=== PATIENT | male | born 1945 | race Caucasian/White ===

== ENCOUNTER → 2021-09-04 | Outpatient (CLI) | payer MEDICARE, BC | LOC: M WUC 10:39 | PROVIDERS: ATTEND Internal Medicine | DX: R05.3 Chronic cough (principal) ==

== ENCOUNTER → 2021-12-10 | Outpatient (CLI) | payer MEDICARE | LOC: M WUC 13:29 | PROVIDERS: ATTEND Urology | DX: Z85.46 Personal history of malignant neoplasm of prostate (principal) ==

== ENCOUNTER 2022-06-11 07:58 | Emergency (ER) | payer OTHER, MEDICARE ==
[~2022-06-11] VITALS: Ht 172.7 cm; Wt 90.5 kg
[2022-06-11 08:00] VITALS: BP 166/79
[2022-06-11] MEDS ORDERED: TAMS1CAP17 (08:10)
[2022-06-11] MEDS ORDERED: ATOR1TAB21 (08:10)
[2022-06-11] MEDS ORDERED: OMEP-173 (08:10)
[2022-06-11] MEDS ORDERED: PROP10TA56 (08:10)
[2022-06-11] MEDS ORDERED: PRED20TA PO (08:10)
== END 2022-06-11 11:18 | disposition home or self-care (01) ==
LOC: M ED 10:46
DX: M50.322 Other cervical disc degeneration at C5-C6 level (principal); M50.323 Other cervical disc degeneration at C6-C7 level; V48.5XXA Car driver injured in noncollision transport accident in traffic accident, initial encounter; X50.0XXA Overexertion from strenuous movement or load, initial encounter; E78.5 Hyperlipidemia, unspecified; C61 Malignant neoplasm of prostate; Z87.891 Personal history of nicotine dependence

== ENCOUNTER → 2024-06-29 | Outpatient (CLI) | payer MEDICARE ==
[~2024-06-29] MED LIST: ATOR1TAB21; E-Z-GAS II EFFERVESCENT PACKET (SODIUM BICARB./CITRIC ACID/SIMETHICONE) As Ordered ONE; E-Z-HD 98% w/w 340GM SUSP BTL As Ordered ONE; E-Z-PAQUE 96% w/w SUSP 176GM BTL As Ordered ONE; OMEP-173; PRED20TA PO; PROP10TA56; TAMS1CAP17
== END ==
LOC: M RAD 09:42
PROVIDERS: ATTEND Physician Assistant Surgical
DX: R13.10 Dysphagia, unspecified (principal); K21.9 Gastro-esophageal reflux disease without esophagitis

== ENCOUNTER → 2025-07-10 | Outpatient (REF) | payer MEDICARE ==
[~2025-07-10] MED LIST changes: -E-Z-GAS II EFFERVESCENT PACKET (SODIUM BICARB./CITRIC ACID/SIMETHICONE) As Ordered ONE; -E-Z-HD 98% w/w 340GM SUSP BTL As Ordered ONE; -E-Z-PAQUE 96% w/w SUSP 176GM BTL As Ordered ONE
== END ==
LOC: M LAB REF 14:29
PROVIDERS: ATTEND Physician Assistant Surgical
DX: K21.9 Gastro-esophageal reflux disease without esophagitis (principal); R13.10 Dysphagia, unspecified; K44.9 Diaphragmatic hernia without obstruction or gangrene; R19.4 Change in bowel habit; R15.2 Fecal urgency; R14.3 Flatulence; R19.7 Diarrhea, unspecified